=== PATIENT | female | born 1960 | race Hispanic/Latino ===

== ENCOUNTER 2017-04-18 13:30 | Outpatient (CLI) | payer OTHER ==
--- NOTE | 2017-04-18 15:03 | Mammography Report ---
Bilateral digital baseline screening mammogram with CAD. Findings: There are scattered fibroglandular densities. A circumscribed nodular asymmetry is seen in the lateral upper aspect of each breast. These measure less than 1 cm in diameter and has circumscribed margins. No architectural distortion, suspicious calcifications, or other significant findings are seen. Impression: No suspicious findings. A small nodular density in each breast demonstrates benign radiographic features, probably representing small intramammary nodes. BI-RADS code: 2. Recommendation: Annual screening.
== END 2017-04-18 13:31 | disposition home or self-care (01) ==
LOC: SPVWC 13:30
PROVIDERS: ATTEND Obstetrics & Gynecology
DX: Z12.31 Encounter for screening mammogram for malignant neoplasm of breast (principal)
CPT/HCPCS: 77067; G0202